=== PATIENT | male | born 1985 | race Caucasian/White ===

== ENCOUNTER 2017-05-12 15:11 | Emergency (ER) | payer BC, MEDICAID ==
[~2017-05-12] VITALS: Ht 185.4 cm; Wt 74.8 kg
[2017-05-12] MEDS ORDERED: Mylanta II UD 30ml ORAL ONE (15:45)
[2017-05-12] MEDS ORDERED: Lidocaine 2% Visc 15ml soln ORAL ONE (15:45)
[2017-05-12] MEDS ORDERED: Dicyclomine HCl 10mg/5ml oral soln ORAL ONE (15:45)
[2017-05-12 15:59] LABS: APPEARANCE,URINE CLEAR; BILIRUBIN, URINE NEGATIVE (NEGATIVE); COLOR,URINE PALE YELLOW; GLUCOSE, URINE (UA) NEGATIVE (NEGATIVE); KETONES,URINE NEGATIVE (NEGATIVE); LEUKOCYTE ESTERASE ,URINE NEGATIVE (NEGATIVE); NITRITE,URINE NEGATIVE (NEGATIVE); PH,URINE 7 (4.5-8.0); PROTEIN,URINE NEGATIVE (NEGATIVE); UROBILINOGEN,URINE NORMAL MG/DL (0.0-1.0)
[2017-05-12 16:09] LABS: BASOPHILS % (AUTO) 1.1 % (0.0-2.0); EOSINOPHILS % (AUTO) 0.6 % (0.0-3.0); HEMATOCRIT 52.8 % (42.0-52.0); HEMOGLOBIN 17.7 G/DL (14.2-18.0); LYMPHOCYTES % (AUTO) 27.1 % (20.0-45.0); MEAN CORPUSCULAR VOLUME 90 FL (80-99); MONOCYTES % (AUTO) 9.1 % (1.0-10.0); NEUTROPHILS % (AUTO) 62.1 % (45.0-75.0); PLATELET COUNT 237 K/UL (150-450); RED BLOOD COUNT 5.85 M/UL (4.70-6.10); RED CELL DISTRIBUTION WIDTH 11.1 % (11.6-14.8); WHITE BLOOD COUNT 6.7 K/UL (4.8-10.8)
[2017-05-12 16:16] LABS: ANION GAP 9 mmol/L (5-15); BLOOD UREA NITROGEN 13 mg/dL (7-18); CARBON DIOXIDE 30 MMOL/L (21-32); CHLORIDE 101 MMOL/L (98-107); CREATININE 0.8 MG/DL (0.55-1.30); POTASSIUM 3.9 MMOL/L (3.5-5.1); SODIUM 140 MMOL/L (136-145)
[2017-05-12 16:19] LABS: ALANINE AMINOTRANSFERASE 137 U/L (12-78); ALBUMIN 4.2 G/DL (3.4-5.0); ALKALINE PHOSPHATASE 85 U/L (46-116); ASPARTATE AMINO TRANSFERASE 52 U/L (15-37); BILIRUBIN,TOTAL 0.9 MG/DL (0.2-1.0)
--- NOTE | 2017-05-12 16:45 | Diagnostic Imaging Report ---
Indication: Cough Comparison: None A single view chest radiograph was obtained. Findings: Cardiomediastinal appearance is within normal limits for age. Aorta is mildly enlarged and has an unusual configuration. Appearance is unusual especially given the patient's young age. Recommend further evaluation. Pulmonary vascularity is appropriate. The diaphragmatic contour is smooth and costophrenic angles are sharp. No pleural effusions are identified. The bones are unremarkable. Impression: Unusual configuration of the aortic arch. Recommend further evaluation such as CT.
[2017-05-12] MEDS ORDERED: IBUPROFEN600 MG ORAL (16:57)
[2017-05-12 17:04] VITALS: BP 127/68
[2017-05-12 17:05] VITALS: BP 127/68
--- NOTE | 2017-05-12 20:48 | Emergency Room Report ---
History of Present Illness General Chief Complaint: Pain Source: Patient Present Illness HPI The patient is a 31-year-old male presenting for abdominal pain. he states that she has a long history of alcohol abuse and is currently in a rehabilitation facility. Pain is a 9/10 dull ache and radiates from the right abdomen to the right side back. This has been ongoing for several months. No known provoking relieving factors. He denies other symptoms including fever, chills, nausea, vomiting, diarrhea, constipation, dysuria, anorexia, weight loss Allergies: Coded Allergies: No Known Allergies (Unverified , 05/12/17) Patient History Past Medical History: see triage record Pertinent Family History: none Reviewed Nursing Documentation: PMH: Agreed, PSxH: Agreed Review of Systems All Other Systems: negative except mentioned in HPI Physical Exam Vital Signs Date Time Temp Pulse Resp B/P (MAP) Pulse Ox O2 Delivery O2 Flow Rate FiO2 05/12/17 15:17 99.0 88 23 98 Room Air 05/12/17 17:04 127/68 Sp02 EP Interpretation: reviewed, normal General Appearance: no apparent distress, alert, GCS 15, non-toxic Head: normocephalic, atraumatic ENT: hearing grossly normal, normal pharynx, no angioedema, normal voice Neck: full range of motion, supple/symm/no masses Respiratory: chest non-tender, lungs clear, normal breath sounds, speaking full sentences Cardiovascular #1: regular rate, rhythm, no edema Gastrointestinal: normal bowel sounds, soft, no mass, tenderness - RUQ mild Musculoskeletal: back normal, gait/station normal, normal range of motion, non- tender Neurologic: alert, oriented x3, responsive, motor strength/tone normal, sensory intact, speech normal Psychiatric: judgement/insight normal, memory normal, mood/affect normal, no suicidal/homicidal ideation Skin: normal color, no rash, warm/dry, well hydrated Medical Decision Making PA Attestation Dr. Escobar is my supervising physician. Patient management was discussed with my supervising physician Diagnostic Impression: Primary Impression: Abdominal pain Qualified Codes: R10.11 - Right upper quadrant pain ER Course The patient is a 31-year-old male presenting for abdominal pain. Differential diagnoses considered include but not limited to gastritis, pancreatitis, appendicitis, hepatitis, cholecystitis, among others PE: NAD Afebrile. Abdomen is soft. Normal bowel sounds. Nondistended. There is mild right upper quadrant tenderness to palpation No CVA tenderness Skin warm and dry. No rash Labs show mild elevation of AST/ALT. Otherwise unremarkable The patient will continue his rehabilitation for alcohol abuse and is discharged home. ER precautions are given Laboratory Tests Test 05/12/17 15:00 05/12/17 15:37 White Blood Count 6.7 K/UL (4.8-10.8) Red Blood Count 5.85 M/UL (4.70-6.10) Hemoglobin 17.7 G/DL (14.2-18.0) Hematocrit 52.8 % (42.0-52.0) H Mean Corpuscular Volume 90 FL (80-99) Mean Corpuscular Hemoglobin 30.3 PG (27.0-31.0) Mean Corpuscular Hemoglobin Concent 33.5 G/DL (32.0-36.0) Red Cell Distribution Width 11.1 % (11.6-14.8) L Platelet Count 237 K/UL (150-450) Mean Platelet Volume 10.4 FL (6.5-10.1) H Neutrophils (%) (Auto) 62.1 % (45.0-75.0) Lymphocytes (%) (Auto) 27.1 % (20.0-45.0) Monocytes (%) (Auto) 9.1 % (1.0-10.0) Eosinophils (%) (Auto) 0.6 % (0.0-3.0) Basophils (%) (Auto) 1.1 % (0.0-2.0) Prothrombin Time 10.2 SEC (9.30-11.50) Prothrombin Time INR 1.0 (0.9-1.1) PTT 29 SEC (23-33) Sodium Level 140 MMOL/L (136-145) Potassium Level 3.9 MMOL/L (3.5-5.1) Chloride Level 101 MMOL/L (98-107) Carbon Dioxide Level 30 MMOL/L (21-32) Anion Gap 9 mmol/L (5-15) Blood Urea Nitrogen 13 mg/dL (7-18) Creatinine 0.8 MG/DL (0.55-1.30) Estimate Glomerular Filtration Rate > 60 mL/min (>60) Glucose Level 96 MG/DL (74-106) Calcium Level 10.0 MG/DL (8.5-10.1) Total Bilirubin 0.9 MG/DL (0.2-1.0) Aspartate Amino Transferase (AST) 52 U/L (15-37) H Alanine Aminotransferase (ALT) 137 U/L (12-78) H Alkaline Phosphatase 85 U/L (46-116) Total Protein 8.3 G/DL (6.4-8.2) H Albumin 4.2 G/DL (3.4-5.0) Globulin 4.1 g/dL Albumin/Globulin Ratio 1.0 (1.0-2.7) Lipase 257 U/L (73-393) Urine Color Pale yellow Urine Appearance Clear Urine pH 7 (4.5-8.0) Urine Specific Ridge 1.005 (1.005-1.035) Urine Protein Negative (NEGATIVE) Urine Glucose (UA) Negative (NEGATIVE) Urine Ketones Negative (NEGATIVE) Urine Occult Blood Negative (NEGATIVE) Urine Nitrite Negative (NEGATIVE) Urine Bilirubin Negative (NEGATIVE) Urine Urobilinogen Normal MG/DL (0.0-1.0) Urine Leukocyte Esterase Negative (NEGATIVE) Lab Results Impression CBC unremarkable. No leukocytosis CMP unremarkable AST ALT slightly elevated No bilirubin elevation Last Vital Signs Date Time Temp Pulse Resp B/P (MAP) Pulse Ox O2 Delivery O2 Flow Rate FiO2 05/12/17 17:05 99.0 23 127/68 98 Room Air 05/12/17 17:04 88 Status: improved Disposition: HOME, SELF-CARE Condition: Improved Scripts Ibuprofen* (MOTRIN*) 600 Mg Tablet 600 MG ORAL Q8H Y for For Pain, #30 TAB 0 Refills Prov: CLARA RONDON 05/12/17 Patient Instructions: Abdominal Pain, Adult Additional Instructions: I discussed my findings with the patient. All questions and concerns have been answered. Treatment and medication compliance have been addressed. The patient will followup with his primary doctor for further treatment and evaluation. Continue the detox program. Return to the emergency department if you experience continued pain, worsening pain, fever, chest pain, or shortness of breath. CLARA RONDON May 12, 2017 20:48
== END 2017-05-12 17:06 | disposition home or self-care (01) ==
LOC: EMR 16:10
DX: R10.9 Unspecified abdominal pain (principal); F10.21 Alcohol dependence, in remission
CPT/HCPCS: 36415; 71045; 80053; 81003; 83690; 85025; 85610; 85730; 96374; 99284; J2405

== ENCOUNTER 2017-07-07 11:06 | Emergency (ER) | payer BC, MEDICAID ==
[~2017-07-07] VITALS: Ht 185.4 cm; Wt 83.9 kg
[~2017-07-07 11:06] MED LIST: IBUPROFEN600 MG ORAL
--- NOTE | 2017-07-07 11:34 | Emergency Room Report ---
History of Present Illness General Chief Complaint: Skin Rash/Abscess Source: Patient Present Illness HPI Patient is a 31-year-old male who presented after increased pain to his buttock area. Patient gradual onset of symptoms and swelling to the area for the last 2 -3 days. Patient states he's had prior history of similar symptoms which resolved spontaneously. He states he is currently in rehabilitation. Patient denies prior surgical drainage. Allergies: Coded Allergies: No Known Allergies (Unverified , 05/12/17) Patient History Past Medical History: see triage record Reviewed Nursing Documentation: PMH: Agreed, PSxH: Agreed Nursing Documentation-PMH Past Medical History: No History, Except For Review of Systems All Other Systems: negative except mentioned in HPI Physical Exam Vital Signs Date Time Temp Pulse Resp B/P (MAP) Pulse Ox O2 Delivery O2 Flow Rate FiO2 07/07/17 11:18 97.9 99 16 120/75 99 Room Air 97.9 General Appearance: well appearing, no apparent distress, alert, GCS 15 Head: normocephalic, atraumatic ENT: hearing grossly normal, normal voice Neck: full range of motion, supple Respiratory: no respiratory distress, speaking full sentences Cardiovascular #1: normal inspection, normal peripheral pulses, regular rate, rhythm Gastrointestinal: normal inspection Musculoskeletal: normal inspection, back normal, no calf tenderness Neurologic: normal gait Psychiatric: mood/affect normal Skin: other - fluctuance to buttock mild erythema near cleft Procedures Incision and Drainage Incision and Drainage : Site: buttock Blade Size: 11 I & D Procedure: betadine prep Wound's Depth, Shape: superficial Wound Length (cm): 1 Wound Explored: clean Anesthesia: Lidocaine w/ Epi Patient Tolerated: Well Complications: None Medical Decision Making Diagnostic Impression: Primary Impression: Pilonidal abscess ER Course Patient presented for buttock swelling. Differential diagnosis included was noted to pilonidal abscess, cellulitis, fracture, necrotizing fasciitis among others.Patient's left buttock was incised with a drainage of large amount of purulent material. The patient is advised to follow up with primary care doctor in 2 days for wound recheck.. Patient is advised to return if any worsening condition or if any changes in status that are concerning. This report is dictated with [employer] supervisor software which may occasionally lead to discrepancies related to use of this software. Last Vital Signs Date Time Temp Pulse Resp B/P (MAP) Pulse Ox O2 Delivery O2 Flow Rate FiO2 07/07/17 11:18 97.9 99 16 120/75 99 Room Air 97.9 Status: improved Disposition: HOME, SELF-CARE Condition: Stable Scripts Ibuprofen* (MOTRIN*) 600 Mg Tablet 600 MG ORAL Q8H Y for For Pain, #30 TAB 0 Refills Prov: Torsten White 07/07/17 Cephalexin* (KEFLEX*) 500 Mg Capsule 500 MG ORAL Q6H, #28 CAP 0 Refills Prov: Torsten White 07/07/17 Torsten White Jul 07, 2017 11:34
[2017-07-07] MEDS ORDERED: Lidocaine 1% 10mg/ml/EPI 0.01mg/ml 50ml INJ ONE (11:44)
[2017-07-07] MEDS ORDERED: Lidocaine 1% 10mg/ml/Epi 0.005mg/ml 30ml vial INJ ONE (11:45)
[2017-07-07] MEDS ORDERED: IBUPROFEN600 MG ORAL (11:58)
[2017-07-07] MEDS ORDERED: KEFLEX500 MG ORAL (11:58)
[2017-07-07 12:14] VITALS: BP 120/75
[2017-07-07 12:21] VITALS: BP 120/75
== END 2017-07-07 12:21 | disposition home or self-care (01) ==
LOC: EMR 11:47
DX: L05.01 Pilonidal cyst with abscess (principal)
CPT/HCPCS: 10060; 99284

== ENCOUNTER 2017-10-07 11:39 | Emergency (ER) | payer MEDICAID ==
[~2017-10-07] VITALS: Ht 185.4 cm; Wt 79.4 kg
[~2017-10-07 11:39] MED LIST changes: +KEFLEX500 MG ORAL
[2017-10-07 11:59] VITALS: BP 112/74
--- NOTE | 2017-10-07 12:48 | Emergency Room Report ---
History of Present Illness General Chief Complaint: Skin Rash/Abscess Source: Patient Present Illness HPI Pt. presents to the ED c/o 11/10 in severity pain, swelling, and erythema of gluteal fold progressive over 3 days. Pt. has a history of pilonidal cyst that required drainage in the past and responded well to incision and drainage with oral antibiotics. Patient is up-to-date with tetanus vaccinations. he is also requesting prescription for doughnut pillow. Denies nausea, vomiting, fevers, chills or swollen tender lymph nodes. Allergies: Coded Allergies: No Known Allergies (Unverified , 05/12/17) Patient History Past Medical History: see triage record Past Surgical History: none Pertinent Family History: none Social History: Reports: drug use - in rehab Immunizations: UTD Reviewed Nursing Documentation: PMH: Agreed; PSxH: Agreed Nursing Documentation-PMH Past Medical History: No History, Except For Review of Systems All Other Systems: negative except mentioned in HPI Physical Exam Vital Signs Date Time Temp Pulse Resp B/P (MAP) Pulse Ox O2 Delivery O2 Flow Rate FiO2 10/07/17 11:59 98.2 86 18 112/74 98 Room Air 98.2 Sp02 EP Interpretation: reviewed, normal General Appearance: no apparent distress, alert, GCS 15, non-toxic Head: normocephalic, atraumatic ENT: hearing grossly normal, normal voice Neck: full range of motion Respiratory: lungs clear, normal breath sounds, speaking full sentences Cardiovascular #1: regular rate, rhythm Rectal: deferred Genitourinary: normal inspection Musculoskeletal: back normal, gait/station normal, normal range of motion, non- tender Neurologic: alert, oriented x3, responsive, motor strength/tone normal, sensory intact, speech normal, grossly normal Psychiatric: judgement/insight normal Skin: normal color, no rash, warm/dry, well hydrated, other - pilonidal cyst- infected 2cm diameter Procedures Incision and Drainage Incision and Drainage : Consent: Verbal Site: Gluteal fold I & D Procedure: betadine prep, sterile drapes applied, sterile dressing applied, gauze wick placed Wound Location: other - gluteal fold Wound's Depth, Shape: superficial Wound Length (cm): 1 Wound Explored: contaminated - purulent d/c Anesthesia: Lidocaine w/ Epi Volume Anesthetic (ccs): 1 Splint Applied?: No Sling Applied?: No Patient Tolerated: Well Complications: None Medical Decision Making PA Attestation Dr. Quiroz is my supervising Physician whom patient management has been discussed with. Diagnostic Impression: Primary Impression: Abscess ER Course Pt. presents to the ED c/o pain, swelling, and erythema of gluteal fold Ddx considered but are not limited to cellulitis, abscess, cystic acne, necrotizing fasciitis, insect bite. Vital signs: are WNL, pt. is afebrile H&PE are most consistent with pilonidal cyst-infected 2cm diameter. ORDERS: none required at this time, the diagnosis is clinical ED INTERVENTIONS: -Motrin PO -I & D. DISCHARGE: At this time pt. is stable for d/c to home. Will provide printed patient care instructions, and any necessary prescriptions. Care plan and follow up instructions have been discussed with the patient prior to discharge. Last Vital Signs Date Time Temp Pulse Resp B/P (MAP) Pulse Ox O2 Delivery O2 Flow Rate FiO2 10/07/17 11:59 98.2 86 18 112/74 98 Room Air 98.2 Disposition: HOME, SELF-CARE Condition: Stable Referrals: ADWOA FAULKNER (PCP) Patient Instructions: Abscess Additional Instructions: Take medications as directed. Follow up with a Primary Care Provider in 3-5 days, even if your symptoms have resolved. --Please review list of primary care clinics, if you do not already have a primary care provider Return sooner to ED if new symptoms occur, or current symptoms become worse. - Please note that this Emergency Department Report was dictated using [employer] holder technology software, occasionally this can lead to erroneous entry secondary to interpretation by the dictation equipment. Elisabet Roberts Oct 07, 2017 12:48
[2017-10-07] MEDS ORDERED: IBUPROFEN600 MG ORAL (12:54)
[2017-10-07] MEDS ORDERED: [UNRECOGNIZED DRUG - SUPPLY] MC (12:54)
[2017-10-07] MEDS ORDERED: CEPHALEXIN500 MG ORAL (12:54)
[2017-10-07 13:05] VITALS: BP 104/84
== END 2017-10-07 13:05 | disposition home or self-care (01) ==
LOC: EMR 12:20
DX: R21 Rash and other nonspecific skin eruption (principal)
CPT/HCPCS: 10060; 99283

== ENCOUNTER 2020-05-21 14:20 | Outpatient (CLI) | payer MEDICAID ==
[~2020-05-21] VITALS: Ht 182.9 cm; Wt 89.8 kg
[~2020-05-21 14:20] MED LIST changes: +CEPHALEXIN500 MG ORAL; +[UNRECOGNIZED DRUG - SUPPLY] MC
--- NOTE | 2020-05-21 15:44 | Consultation ---
DATE OF CONSULTATION: 05/21/2020 GASTROENTEROLOGY CONSULTATION CONSULTING PHYSICIAN: Javi Leonardo MD. CHIEF COMPLAINT: Followup for gastric ulcer bleeding, history of rectal bleeding possibly from hemorrhoids. PAST MEDICAL HISTORY: 1. Seizure disorder. 2. ADHD. 3. Peptic ulcer disease. 4. H. pylori gastritis. 5. History of alcohol and IV drug abuse. PAST SURGICAL HISTORY: None. MEDICATIONS: Please see medication reconciliation list. FAMILY HISTORY: Noncontributory. SOCIAL HISTORY: The patient currently lives in . He had quit alcohol, quit tobacco, and quit IV drug abuse. ALLERGIES: No known allergies. REVIEW OF SYSTEMS: Positive for abdominal pain and rectal bleeding after having bowel movement. PHYSICAL EXAMINATION: VITAL SIGNS: Temperature 97.2, blood pressure 115/74, pulse 103, respirations 20. HEENT: Normocephalic and atraumatic. Sclerae are anicteric. NECK: Supple. No evidence of obvious lymphadenopathy. CARDIOVASCULAR: Regular rate and rhythm. Plus S1-S2. LUNGS: Clear to auscultation bilaterally. ABDOMEN: Positive bowel sounds. Soft and nontender. No rebound. No guarding. No peritoneal sign. EXTREMITIES: No cyanosis, no clubbing, no edema. ASSESSMENT AND PLAN: This is a 34-year-old male with: 1. History of peptic ulcer disease, H. pylori positive status post treatment, status post blood test, which we do not have the results of it. Plan to do an endoscopy for followup for gastric ulcer when authorization is obtained. 2. Rectal bleeding, most likely from hemorrhoidal bleeding. The patient was given a prescription for Anusol-HC twice a day, Sitz baths , treat for constipation. Consider flexible sigmoidoscopy with banding if needed. 3. Complaint of bloating and gas. Align 1 tablet p.o. daily. Javi Leonardo M.D. DR: BRIANA JOB#: [id number] CC:
[2020-05-22 08:58] VITALS: BP 115/74
== END 2020-05-21 16:20 | disposition home or self-care (01) ==
LOC: PAN 14:20
DX: K62.5 Hemorrhage of anus and rectum (principal); Z87.11 Personal history of peptic ulcer disease; K59.00 Constipation, unspecified; R14.0 Abdominal distension (gaseous); B96.81 Helicobacter pylori [H. pylori] as the cause of diseases classified elsewhere; G40.909 Epilepsy, unspecified, not intractable, without status epilepticus; K64.9 Unspecified hemorrhoids